=== PATIENT | female | born 1995 ===

== ENCOUNTER → 2019-02-04 | Outpatient (CLI) | payer OTHER ==
[~2019-02-04] MED LIST: ASPI-1471 PO; FISH1CAP15 PO; PREN-127 PO; VALA500T63 PO
[2019-02-04 10:00] LABS: PLATELET COUNT, AUTOMATED 238 K/uL (150-450)
== END ==
LOC: LAB 09:00
PROVIDERS: ATTEND Obstetrics & Gynecology
DX: Z34.91 Encounter for supervision of normal pregnancy, unspecified, first trimester (principal)
CPT/HCPCS: 36415; 81001; 85025; 86592; 86703; 86762; 86850; 86900; 86901; 87088; 87340

== ENCOUNTER → 2019-02-14 | Outpatient (CLI) | payer OTHER | LOC: LAB 08:13 | PROVIDERS: ATTEND Student in an Organized Health Care Education/Training Program | DX: Z34.91 Encounter for supervision of normal pregnancy, unspecified, first trimester (principal) | CPT/HCPCS: 87491; 87591 ==

== ENCOUNTER → 2019-03-09 | Outpatient (CLI) | payer OTHER ==
[~2019-03-09] MED LIST changes: +DIPH50VI24 IVP; +PROM25VI14 IVP
== END ==
LOC: LAB 09:33
PROVIDERS: ATTEND Advanced Practice Midwife
DX: R19.7 Diarrhea, unspecified (principal)
CPT/HCPCS: 87177; 87324; 87449